=== PATIENT | female | born 1995 | race Two or more races ===

== ENCOUNTER 2019-02-26 21:34 | Emergency (ER) | payer SELFPAY ==
[~2019-02-26] VITALS: Ht 162.6 cm; Wt 58.2 kg
[2019-02-26 21:57] VITALS: BP 116/72
== END 2019-02-26 23:30 | disposition left against medical advice (07) ==
LOC: EMS 21:37
DX: S71.159A Open bite, unspecified thigh, initial encounter (principal); F12.90 Cannabis use, unspecified, uncomplicated; Z53.21 Procedure and treatment not carried out due to patient leaving prior to being seen by health care provider; Y04.1XXA Assault by human bite, initial encounter; Y93.89 Activity, other specified; Y92.89 Other specified places as the place of occurrence of the external cause; Y99.8 Other external cause status